=== PATIENT | male | born 1955 | race Caucasian/White ===

== ENCOUNTER 2019-03-31 12:39 | Observation (INO) | payer BC, SELFPAY ==
[2019-03-31 13:23] LABS: #Eosinphils 0.2 thou/uL (0.0-0.7); #Monocytes 0.6 thou/uL (0.11-0.59); #Neutrophils 4.3 thou/uL (1.40-6.50); %Basophils 0.4 % (0.0-1.0); %Eosinophils 2.9 % (0.0-10.0); %Lymphocytes 28.5 % (21.0-51.0); %Monocytes 8.5 % (0.0-10.0); %Neutrophils 59.7 % (42.0-75.0); Hemoglobin 14.5 g/dL (14.0-18.0); Mean Corpuscular HGB CONC 33.6 g/dL (32.0-36.0); Mean Corpuscular Hemoglobin 31.2 pg (27.0-31.0); Mean Corpuscular Volume 92.9 fL (78.0-98.0); Mean Platelet Volume 8.1 fL (7.4-10.4); Platelet Count 236 thou/uL (130-400); RBC Distribution Width 12.1 % (11.5-14.5); Red Blood Cell (RBC) Count 4.66 mill/uL (4.70-6.10); White Blood Cell (WBC) Count 7.2 thou/uL (4.8-10.8)
[2019-03-31 13:52] LABS: ALT (SGPT) 18 U/L (8-55); AST (SGOT) 13 U/L (5-34); Albumin 4.2 g/dL (3.4-4.8); Alkaline Phosphatase 82 U/L (40-150); Anion Gap 12 mmol/L (10-20); BUN (Urea Nitrogen) 15 mg/dL (8.4-25.7); Calc. Creatinine Clearance 0 mL/min (70-130); Calcium 8.9 mg/dL (7.8-10.44); Carbon Dioxide 22 mmol/L (23-31); Chloride 107 mmol/L (98-107); Estimated GFR-MDRD Greater than 90; Globulin 2.5 g/dL (2.4-3.5); Glucose 106 mg/dL (80-115); Potassium 3.9 mmol/L (3.5-5.1); Protein, Total 6.7 g/dL (5.8-8.1); Sodium 137 mmol/L (136-145)
[2019-03-31] MEDS ORDERED: Bisacodyl 5 MG TAB PO PRN (15:36)
[2019-03-31] MEDS ORDERED: Acetaminophen 325 MG TAB PO PRN (15:36)
[2019-03-31] MEDS ORDERED: Senokot S 8.6-50 MG TAB PO PRN (15:36)
[2019-03-31 15:58] LABS: Cardiac Risk 4.1 (Less than 4.5)
[2019-03-31 16:05] LABS: Hemoglobin A1c 5.5 % (4.0-6.0)
--- NOTE | 2019-03-31 16:53 | MRI ---
MRI Brain WO Con: 03/31/2019 3:38 PM CLINICAL HISTORY: Stroke with right-sided weakness. COMPARISON: None. FINDINGS: Extra axial spaces: Normal in size and morphology for the patient's age. Acute infarction: None. Ventricular system: Normal in size and morphology for the patient's age. Basal cisterns: Normal. Cerebral parenchyma: Normal. Midline shift: None. Cerebellum: Normal. Brainstem: Normal. Paranasal sinuses:Scattered mucosal thickening. IMPRESSION:No acute intracranial abnormality.
[2019-03-31 17:45] VITALS: BMI 26.6
--- NOTE | 2019-03-31 18:39 | ULT ---
BILATERAL CAROTAID DUPLEX ULTRASOUND: 03/31/19 HISTORY: TIA. TECHNIQUE: Vang scale ultrasound with color flow and spectral Doppler imaging of the extracranial carotid artery systems is performed bilaterally. FINDINGS: There is plaque formation noted on either side. The peak systolic velocity in the right ICA measures 81 cm/s with an end diastolic velocity of 29 cm/ s and systolic ratio of 0.89. The peak systolic velocity in the left ICA measures 87 cm/s with an end diastolic velocity of 33 cm/s and systolic ratio of 0.98. Flow in both vertebral arteries remains antegrade. IMPRESSION: No evidence of hemodynamically significant stenosis. POS: [facility]
[2019-03-31] MEDS: Heparin 5,000 UNITS/ML VIAL SC SCH (20:23)
[2019-03-31] MEDS ORDERED: Pravastatin Sodium 40 MG TAB PO SCH (21:00)
--- NOTE | 2019-03-31 22:06 | HP ---
CHIEF COMPLAINT: Right-sided arm weakness. HISTORY OF PRESENT ILLNESS: The patient is a 63-year-old male with a history of hypercholesterolemia, who presents to the hospital with complaints of right-sided arm weakness x1 day. The patient stated that he woke up this morning, tried to put on his pants and felt he could not pull his pants up with his right arm. The patient then tried to brushes the teeth and he was unable to move his arm. Also when he tried to comb his hair, he was unable to do so. The patient stated that this has never happened to him before, so he came into the ER for further evaluation. The patient stated that about couple 3 to 4 weeks ago, he woke up one day, got very dizzy to the point that he felt very unsteady. He stated that the unsteadiness lasted for about 12 hours and then improved. He denies any palpitations, any chest pain, or shortness of breath, any nausea, vomiting, or diarrhea. PAST MEDICAL HISTORY: He has a history of high cholesterolemia. ALLERGIES: HE HAS NO KNOWN DRUG ALLERGIES. MEDICATIONS: He takes pravastatin 80 mg daily and CoQ10 one p.o. daily. SOCIAL HISTORY: He is a former smoker. Does not smoke anymore. He drinks 4 to 5 beers maybe every day or every other day. Denies any drug use. He is a full code. Lives with his family. PAST SURGICAL HISTORY: He has had a right femur fracture, which he had not repaired. FAMILY HISTORY: Mother had a history of heart disease and at age of 66, brother had a heart attack and in his 50s, and father at age of 80 with also heart disease. REVIEW OF SYSTEMS: All negative except the ones mentioned above in HPI. PHYSICAL EXAMINATION: VITAL SIGNS: Temperature of 98.8, heart rate 68, blood pressure 118/81, respiratory rate 19, and saturation 97% on room air. GENERAL: He is awake, alert, and oriented x3. Does not appear in any distress. HEENT: Normocephalic and atraumatic. No lymphadenopathy noted. Pupils are equal and reactive to light. Cranial nerves 3 through 11 are intact. CV: S1 and S2 present. No murmurs, rubs, or gallops. LUNGS: Clear to auscultation. No rhonchi or wheezing noted. ABDOMEN: Soft and nontender. Bowel sounds are present x2. EXTREMITIES: No edema. Pedal pulses are present x2. NEUROVASCULAR: There are no focal deficits noted. Cerebellum test also intact. SKIN: No cuts, lesions, or bruises noted. LABORATORY RESULTS: Sodium 137, potassium of 3.9, BUN of 15, creatinine 0.81. His troponin x1 was negative. Hematology showed WBCs of 7.2, hemoglobin of 14.5, hematocrit of 43.2, platelets of 236. The patient did have a CT head, which I was told was negative. I reviewed the report and was negative, CT head. EKG, no acute changes. ASSESSMENT AND PLAN: The patient is a 63-year-old male, who presents to the hospital with complaints of right-sided upper arm weakness, which lasted for about 4 hours. 1. Right-sided weakness, right upper arm weakness, most likely secondary to possible transient ischemic attack. We will check a lipid panel in the morning, hemoglobin A1c. We will check an echocardiogram, carotid Dopplers, and may also get an MRI since he had symptoms of dizziness. We will start him on aspirin since he does not take an aspirin and also continue his pravastatin. We will also continue to monitor him on tele. The patient denies any palpitations. His last stress test was about couple years ago. 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 2. History of high cholesteremia. Again, we will check a cholesterol panel in the morning, and we will continue to monitor. 3. DVT prophylaxis. We will put the patient on subcu heparin. Job ID: [id number]
[2019-04-01 05:34] LABS: #Eosinphils 0.3 thou/uL (0.0-0.7); #Lymphocytes 2.5 thou/uL (1.20-3.40); #Monocytes 0.8 thou/uL (0.11-0.59); #Neutrophils 3.8 thou/uL (1.40-6.50); %Basophils 0.6 % (0.0-1.0); %Lymphocytes 33.4 % (21.0-51.0); %Monocytes 10.4 % (0.0-10.0); %Neutrophils 51.6 % (42.0-75.0); Hemoglobin 14.6 g/dL (14.0-18.0); Mean Corpuscular Hemoglobin 30.8 pg (27.0-31.0); Mean Corpuscular Volume 93.5 fL (78.0-98.0); Mean Platelet Volume 8.1 fL (7.4-10.4); Platelet Count 240 thou/uL (130-400); RBC Distribution Width 12.2 % (11.5-14.5); Red Blood Cell (RBC) Count 4.75 mill/uL (4.70-6.10); White Blood Cell (WBC) Count 7.3 thou/uL (4.8-10.8)
[2019-04-01 06:01] LABS: Anion Gap 10 mmol/L (10-20); BUN (Urea Nitrogen) 15 mg/dL (8.4-25.7); Calc. Creatinine Clearance 94 mL/min (70-130); Calcium 9.4 mg/dL (7.8-10.44); Carbon Dioxide 26 mmol/L (23-31); Cardiac Risk 4.4 (Less than 4.5); Chloride 105 mmol/L (98-107); Cholesterol 258 mg/dl (< 200 Desired); Estimated GFR-MDRD 85; Glucose 96 mg/dL (80-115); HDL Cholesterol 58 mg/dL (>60 Neg Risk); LDL Cholesterol, Calculated 167 mg/dL; Potassium 4.1 mmol/L (3.5-5.1); Sodium 137 mmol/L (136-145); Triglycerides 166 mg/dL (Less than 150)
[2019-04-01] MEDS: Heparin 5,000 UNITS/ML VIAL SC SCH (08:31)
[2019-04-01] MEDS ORDERED: Aspirin 325 mg Enteric Coated Tablet PO SCH (09:00)
[2019-04-01 16:19] VITALS: BP 129/82; TEMP 98.7
--- NOTE | 2019-04-01 22:15 | CON ---
DATE OF CONSULTATION: 04/01/2019 CONSULTING PHYSICIAN: Hospitalist Service. IMPRESSION: 1. Transient ischemic attack with transient right upper extremity weakness. 2. Hyperlipidemia. PLAN: 1. Add aspirin. 2. Continue statin. HISTORY OF PRESENT ILLNESS: Mr. 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 He was getting ready for work and putting on his clothes when he noticed that his right hand was not cooperating. He attempted to brush his teeth and noticed that he could not generate a rhythm with his right arm in order to do so. He was taken to the emergency room in [place]. After around 2-1/2 to 3 hours, the symptoms resolved. He was transferred here for care. He had an MRI scan done today, which was normal. His carotid ultrasound did not show any stenosis. His vital signs have been stable. He has never had any transient symptoms like this in the past. PAST MEDICAL HISTORY: Hyperlipidemia. ALLERGIES: NONE. SOCIAL HISTORY: No tobacco use. FAMILY HISTORY: Noncontributory. REVIEW OF SYSTEMS: Ten-system review of systems is otherwise negative. PHYSICAL EXAMINATION: VITAL SIGNS: Blood pressure 119/78, pulse 76, respirations 16, and temperature 98.8. HEENT: Pupils are equal and reactive. Conjunctivae are clear. Oropharynx is clear. NECK: Supple. No lymphadenopathy. EXTREMITIES: No cyanosis, clubbing, or edema. NEUROLOGIC: He is alert and appropriate. His speech is fluent and clear. Cranial nerves are intact. Motor exam shows equal strength. Sensations are intact. He can walk independently. No abnormal movements are seen. SUMMARY: This is a middle-aged man with transient neurologic event with no evidence of injury on MRI. I agree with starting aspirin and continuing his statin. He appears stable for discharge. Job ID: [id number]
--- NOTE | 2019-04-03 12:55 | EKG ---
Test Reason : Blood Pressure : / mmHG Vent. Rate : 075 BPM Atrial Rate : 075 BPM P-R Int : 178 ms QRS Dur : 082 ms QT Int : 384 ms P-R-T Axes : 031 023 039 degrees QTc Int : 428 ms Normal sinus rhythm Normal ECG Confirmed by JULIA SUMMERS MD ([id number]), commissioning editor ODETTE SANTIZO ([id number]) on 04/03/2019 12:54:57 PM Referred By: Confirmed By:JULIA SUMMERS MD
== END 2019-04-01 18:45 | disposition home or self-care (01) ==
LOC: ERS 12:39 → 2SE 13:37
PROVIDERS: ADMIT Internal Medicine; ATTEND Internal Medicine
DX: R53.1 Weakness (principal); E78.00 Pure hypercholesterolemia, unspecified; Z87.891 Personal history of nicotine dependence
CPT/HCPCS: 36415; 70551; 80048; 80053; 80061; 83036; 84484; 85025; 93005; 93306; 93880; G0378; J1644